=== PATIENT | male | born 1955 | race Caucasian/White ===

== ENCOUNTER 2023-02-06 10:39 | Emergency (ER) | payer MEDICARE, SELFPAY ==
[2023-02-06] VITALS (7 sets, daily range): BP systolic 125–151; BP diastolic 71–83; PULSE 58–79; RESP 13–25; TEMP 35.6; O2SAT 94–97; BMI 31.4
--- NOTE | 2023-02-06 10:42 | NURSING ---
NO OLD EKGS
--- NOTE | 2023-02-06 10:57 | EDS_ITS ---
HPI History of Present Illness Chief Complaint: Syncope Informant: patient and spouse/S.O. Narrative Narrative: Patient was here in the hospital visiting a family member, he was standing near the bedside and started feeling hot, this led to lightheadedness and malaise, he asked for a bottle of water, he started drinking some water then he sat down he was near syncopal but did not lose consciousness, after 2 to 3 minutes he was feeling better and recovered after about 5 or 10 minutes now feels back to normal. No other prodromal symptoms; no chest pain, dyspnea, headache, focal neurologic symptoms, or palpitations. Someone checked his blood sugar and it wa s 240s. He was in the 120s this morning, he is a diabetic. He had something similar happen last year, and was referred to cardiology because of bradycardia. Medications were adjusted initially, he saw them a couple weeks ago where they adjusted no medications. He has had a monitor in the past but no events, but he did not have symptoms like this while he was wearing it. No recent leg pain, sw elling, long travel/immobilization or surgery or hospitalization for anything. [facility] Medical History Diabetes mellitus Hypercholesteremia Hypertension Home Medications amlodipine 10 mg tablet 10 mg PO DAILY 02/06/23 [History Last Taken Unknown] aspirin 81 mg tablet,delayed release 81 mg PO DAILY 02/06/23 [History Last Taken Unknown] empagliflozin 25 mg tablet (Jardiance) 25 mg PO DAILY 02/06/23 [History Last Taken Unknown] Social History Smoking Status: Never smoker ROS ROS ED Constitutional Constitutional ED: Denies chills or fever(s) Eyes Eyes: Denies change in vision or diplopia ENT ENT ED: Denies rhinorrhea or sore throat Cardiovascular Cardiovascular: Reports lightheadedness; Denies chest pain, palpitations or syncope Respiratory/Chest Respiratory/Chest: Denies cough or dyspnea Gastrointestinal Gastrointestinal: Denies abdominal pain, diarrhea, nausea or vomiting Genitourinary Genitourinary ED: Denies dysuria or hematuria Musculoskeletal Musculoskeletal: Denies back pain or neck pain Integumentary Denies abscess or rash Neurologic Neurologic: Denies headache(s), paresthesias or weakness Psychiatric Psychiatric: Denies anxiety or suicidal thoughts EXAM Physical Exam Const Vital Signs: 02/06/23 10:40 02/06/23 10:47 02/06/23 10:47 Temperature 96.0 F L Temperature Source Temporal Pulse Rate 73 79 Respiratory Rate 13 25 H Respiratory Effort Normal Non-Labored Respiratory Pattern Normal Blood Pressure 151/81 H 141/83 H Blood Pressure Mean 104 102 Pulse Ox 96 94 Oxygen Delivery Method Room Air Room Air 02/06/23 11:14 02/06/23 11:40 02/06/23 12:39 Temperature Temperature Source Pulse Rate 65 64 Respiratory Rate 16 16 Respiratory Effort Respiratory Pattern Blood Pressure 125/71 H 144/74 H Blood Pressure Mean 89 97 Pulse Ox 95 96 97 Oxygen Delivery Method Room Air Room Air Room Air 02/06/23 13:02 Temperature Temperature Source Pulse Rate 60 Respiratory Rate 16 Respiratory Effort Respiratory Pattern Blood Pressure 144/74 H Blood Pressure Mean 97 Pulse Ox 96 Oxygen Delivery Method Room Air Positive well nourished and well developed General Appearance ED: well developed and NAD HEENT Reports moist mucous membranes normocephalic and atraumatic Eyes PERRL and EOMs intact bilaterally Neck full ROM and supple Resp normal respiratory effort and clear to auscultation bilaterally Cardio regular rate, regular rhythm and no murmurs Rate: Negative for bradycardia or tachycardic GI non-tender and non-distended Auscultation: normoactive bowel sounds Palpation: soft Back/Spine no CVA tenderness General Back: other FROM Extremity normal to inspection General Extremety ED: Negative for edema, pulses abnormal or tenderness General Extremity: Negative for edema or pulses abnormal Neuro oriented x3, CN's II-XII intact bilaterally and no sensory deficits noted Sensorium / Orientation: awake and alert Motor Exam: strength 5/5 throughout Psych mental status grossly normal Skin no rashes or lesions noted and no wounds MDM MDM MDM Narrative Medical decision making narrative: Patient sees a cocktail lounge manager in her event with , he has never been here before I do not have an old EKG to compare with, his current EKG shows no acute injury pattern, my interpretation shows sinus rhythm with a first-degree AV block, but with an exceptionally long FL interval almost 400 ms. Patient felt better, he had no recurrent symptoms during his observation period here, his initial troponin was 14 and the second 1 was 15 both within normal limits and essentially unchanged. However he did have several episodes of some ectopy on the monitor, with some PVCs and at other times appeared to have dropped beats. I printed these rhythm strips and measured the FL interval's and they appear to be consistent with making back. These were asymptomatic for him. Certainly symptomatic bradycardia was in the differential diagnosis as well. At this time the patient's heart rate has been good, he is on no AV carlton blockers, and he is feeling fine with a otherwise negative work-up. I see no reason to admit him at this time, and there is nothing here that needs an emergent pacemaker, I recommend close outpatient follow-up with his cocktail lounge manager, I gave him his EKG and rhythm strips to take and show to his doctor for comparison and further decision making. We did discuss reasons to return here, and reasons to follow- up he is comfortable with that plan discussed with the , answered all questions at the bedside from both. Lab Data Attestation: I reviewed the patient's lab results. Labs: Laboratory Results - last 24 hr 02/06/23 02/06/23 10:59 13:00 WBC 9.7 RBC 5.29 Hgb 16.1 Hct 47.6 MCV 90.0 MCH 30.4 MCHC 33.8 RDW Std Deviation 41.4 RDW Coeff of Dianne 12.6 Plt Count 191 MPV 9.0 Immature Gran % (Auto) 0.500 Neut % (Auto) 72.7 H Lymph % (Auto) 17.1 L [place] % (Auto) 7.3 Eos % (Auto) 2.0 Baso % (Auto) 0.4 Absolute Neuts (auto) 7.0 Absolute Lymphs (auto) 1.65 Nucleated RBC % 0 Sodium 136 Potassium 4.3 Chloride 107 Carbon Dioxide 22.0 Anion Gap 7 BUN 41 H Creatinine 1.72 H Estim Creat Clear Calc 47.74 Est GFR (MDRD) Af Amer 51 L Est GFR (MDRD) Non-Af 43 L BUN/Creatinine Ratio 23.8 H Glucose 244 H Calcium 9.5 Troponin I High Sens 14 15 Rhythm Strip Rhythm Strip: Sinus Rhythm Rate: 70 Ectopy: PVC(s) EKG Initial EKG: Attestation: I personally reviewed and interpreted this EKG as follows: Interpretation: Sinus Rhythm, No Acute Injury Pattern and AV Block (1st deg) Comments: FL interval almost 400 ms Prior: No Prior Discharge Plan Triage Chief Complaint: Syncope ED Provider: Yefri Griffin Dx/Rx/DC Orders Clinical Impression: Atrioventricular block, first degree, Mobitz type 1 second degree AV block, Near syncope Instructions: Your Heart's Electrical System, ED Near-Fainting, Uncertain Cause Prescriptions: No Action aspirin 81 mg tablet,delayed release (DR/EC) 81 mg PO DAILY Jardiance 25 mg tablet 25 mg PO DAILY amlodipine 10 mg tablet 10 mg PO DAILY Primary Care Provider: BERTRAND HAYES DO Referrals: BERTRAND HAYES DO [Other] - As soon as possible (and/or your cocktail lounge manager) Disposition Disposition: Home, Self Care
[2023-02-06 11:05] LABS: Absolute Lymphocyte Count 1.65 X10^3/uL (0.83-4.51); Basophil# 0.04 X10^3/uL; Basophil% 0.4 % (0-1); Eosinophil# 0.19 X10^3/uL; Hematocrit 47.6 % (40-54); Hemoglobin 16.1 g/dL (13.0-16.5); Lymphocyte # 1.65 X10^3/ul (0.83-4.51); Lymphocyte % 17.1 % (19-41); Mean Corp Hgb Conc 33.8 g/dL (32-36); Mean Corpuscular Hgb 30.4 pg (27.0-32.0); Monocyte# 0.71 X10^3/uL; Monocyte% 7.3 % (0-10); NRBC Flagged by Analyzer 0 % (0-5); Neutrophil # 7.03 X10^3/uL (2.7-7.7); Neutrophil % 72.7 % (47-70); Platelet Count 191 K/mm3 (150-450); RBC Distribution Width CV 12.6 % (11.6-14.6); RBC Distribution Width SD 41.4 fl (35.1-43.9); Red Blood Count 5.29 M/mm3 (4.6-6.2); White Blood Count 9.7 K/mm3 (4.4-11.0)
[2023-02-06 11:22] LABS: Anion Gap 7 (5-15); BUN 41 mg/dL (7-18); BUN/Creat Ratio 23.8 RATIO (10-20); Calcium,Total 9.5 mg/dL (8.5-10.1); Chloride 107 mmol/L (98-107); Creatinine, Serum 1.72 mg/dL (0.70-1.30); EST Glomerular Filtration Rate 43 mL/min (>60); Est Glom Filt Rate - Afr Amer 51 mL/min (>60); Estimated Creatinine Clearance 47.74 ml/min; Glucose 244 mg/dL (74-106); Potassium 4.3 mmol/L (3.5-5.1); Sodium Level 136 mmol/L (136-145); Troponin-I HS (w/2H Reflex) 14 pg/mL (3.0-78.0)
[2023-02-06 13:01] LABS: Reflex Troponin-HS? (from REC) Y
[2023-02-06 13:29] LABS: Troponin-I HS 15 pg/mL (3.0-78.0)
[2023-02-08 15:44] LABS: Bedside Glucose 245 mg/dL (74-106)
== END 2023-02-06 14:29 | disposition home or self-care (01) ==
PROVIDERS: Emergency Provider Emergency Medicine; Visit Provider Emergency Medicine
DX: I44.1 Atrioventricular block, second degree (principal); E11.9 Type 2 diabetes mellitus without complications; R55 Syncope and collapse; E78.00 Pure hypercholesterolemia, unspecified; I10 Essential (primary) hypertension; Z79.82 Long term (current) use of aspirin; Z79.899 Other long term (current) drug therapy
CPT/HCPCS: 80048; 82962; 84484; 85025; 93005; 99283; A4216